=== PATIENT | male | born 1935 | race Caucasian/White ===

== ENCOUNTER 2017-05-14 05:55 | Emergency (ER) | payer MEDICARE, OTHER ==
[2017-05-14] MEDS ORDERED: SODIUM CHLORIDE 0.9% 1,000 ML IV STA ×2 (06:20→07:10)
[2017-05-14 06:45] LABS: EOSINOPHILS % (AUTO) 0.2 %; HCT - HEMATOCRIT 50.4 % (42.0-52.0); HGB - HEMOGLOBIN 16.8 g/dL (14.0-18.0); MEAN CORPUSCULAR HEMOGLOBIN 29.7 pg (27.0-31.0); MEAN CORPUSCULAR HGB CONC 33.3 g/dL (32.0-36.0); MEAN CORPUSCULAR VOLUME 89.1 fL (80.0-94.0); MEAN PLATELET VOLUME 7.7 fL (7.4-11.4); MONOCYTES % (AUTO) 4.9 %; NEUTROPHILS % (AUTO) 90.9 %; RED BLOOD COUNT 5.65 10^6/uL (4.70-6.10); RED CELL DISTRIBUTION WIDTH 14.1 % (12.0-15.0); UNCORRECTED WHITE BLOOD COUNT 11.9 x10^3/uL; WHITE BLOOD COUNT 11.9 x10^3/uL (4.8-10.8)
[2017-05-14 06:48] LABS: INR 1.1 (0.8-1.2)
[2017-05-14 06:52] LABS: ALBUMIN/GLOBULIN RATIO 1.7 (1.0-2.2); BILIRUBIN,TOTAL 1.2 mg/dL (0.2-1.0); CALCIUM 8.9 mg/dL (8.5-10.3); CREATININE 1.3 mg/dL (0.6-1.2)
[2017-05-14 07:01] LABS: PARTIAL THROMBOPLASTIN TIME 25.1 secs (24.9-33.3)
[2017-05-14 07:18] LABS: BAND NEUTROPHILS % (MANUAL) 22 %; BASOPHILS % (MANUAL) 1 %; NEUTROPHILS % (MANUAL) 67 %; TOTAL CELLS COUNTED 100
[2017-05-14 07:20] LABS: NP AUTO DIFFERENTIAL? YES; NP MAN DIFFERENTIAL? NO
--- NOTE | 2017-05-14 07:24 | ED Physician Documentation ---
PD HPI NVD - Stated complaint Stated Complaint: VOMITING,DIARRHEA - Chief complaint Chief Complaint: Abd Pain - History obtained from History obtained from: Patient, Family - History of Present Illness Timing - onset: Last night Timing - duration: Hours Timing - details: Abrupt onset, Still present Associated symptoms: Dizzy, Other (diarrhea and vomiting) Contributing factors: Travel Improved by: Vomiting Similar symptoms before: Has not had sx before Recently seen: Not recently seen - Additonal information Additional information: 81-year-old male with Intermittent atrial fibrillation who is on Tikosyn and has developed acute nausea and vomiting at approximately 1030 last night and developed diarrhea throughout the night. He has had a lot of diarrhea and he is feeling weak. He has not had an episode of atrial fibrillation in over a year. He has been on Tikosan for 2 years and has an implantable defibrillator. He is visiting here from [place] and he had a piece of chicken to eat from the grocery store yesterday that he thought was heavily breaded. He had dinner with the family and no one else is sick. He does not usually get vomiting and diarrhea.He was feeling well prior to the onset of nausea and vomiting last night. Review of Systems Constitutional: denies: Fever, Chills, Myalgias, Fatigue Eyes: denies: Decreased vision Ears: denies: Ear pain Nose: denies: Rhinorrhea / runny nose, Congestion Throat: denies: Sore throat Cardiac: denies: Chest pain / pressure, Palpitations Respiratory: reports: Dyspnea. denies: Cough GI: reports: Nausea, Vomiting, Diarrhea. denies: Abdominal Pain : denies: Dysuria, Frequency Skin: denies: Rash Musculoskeletal: denies: Neck pain, Back pain, Extremity pain Neurologic: reports: Generalized weakness. denies: Focal weakness, Numbness, Difficulty speaking, Altered mental status PD PAST MEDICAL HISTORY - Past Medical History Past Medical History: Yes Cardiovascular: Hypertension, High cholesterol, Atrial fibrillation Respiratory: None Neuro: None Endocrine/Autoimmune: Type 2 diabetes, HyPOthyroidism GI: None : None HEENT: None Psych: None Musculoskeletal: None Derm: None - Past Surgical History Past Surgical History: Yes General: Appendectomy Ortho: Knee replacement - Present Medications Home Medications: Ambulatory Orders Medication Instructions Recorded Confirmed Atorvastatin [Lipitor] 40 mg PO DAILY 05/14/17 05/14/17 Dofetilide [Tikosyn] 250 mcg PO DAILY 05/14/17 05/14/17 Levothyroxine Sodium [Synthroid] 200 mcg PO DAILY 05/14/17 05/14/17 Metoclopramide [Reglan] 10 mg PO Q6H PRN #10 tablet 05/14/17 Metoprolol Tartrate 25 mg PO DAILY 05/14/17 05/14/17 Multivitamin [Multivitamins] 1 each PO DAILY 05/14/17 05/14/17 [place]-3/Dha/Epa/Fish Oil [Fish Oil 1 each PO DAILY 05/14/17 05/14/17 1,000 mg Softgel] Ubidecarenone/Vitamin E Mixed 1 each PO DAILY 05/14/17 05/14/17 [Lap54-Xma E 100 mg-10 Unit Sfg] metFORMIN [Glucophage] 1,000 mg PO DAILY 05/14/17 05/14/17 - Allergies Allergies/Adverse Reactions: Allergies Allergy/AdvReac Type Severity Reaction Status Date / Time Penicillins Allergy Rash Verified 05/14/17 06:09 - Social History Does the pt smoke?: No Smoking Status: Never smoker Does the pt drink ETOH?: No Does the pt have substance abuse?: No - Immunizations Immunizations are current?: Yes PD ED PE NORMAL - Vitals Vital signs reviewed: Yes (Normal) - General General: Alert and oriented X 3, No acute distress, Well developed/nourished - HEENT HEENT: Atraumatic, PERRL, EOMI - Neck Neck: Supple, no meningeal sign, No bony TTP - Cardiac Cardiac: No murmur, Other (rapid irregluar rate and rhythm) - Respiratory Respiratory: No respiratory distress, Clear bilaterally - Abdomen Abdomen: Soft, Non tender - Back Back: No CVA TTP, No spinal TTP - Derm Derm: Normal color, Warm and dry, No rash - Extremities Extremities: No deformity, No edema - Neuro Neuro: Alert and oriented X 3, No motor deficit, No sensory deficit, Normal speech - Psych Psych: Normal mood, Normal affect Results - Vitals Vitals: Vital Signs - 24 hr 05/14/17 05/14/17 05/14/17 06:03 06:28 07:30 Temperature 36.6 C Heart Rate 89 126 H 116 H Respiratory 16 17 22 Rate Blood Pressure 127/77 102/65 103/62 O2 Saturation 95 94 95 05/14/17 05/14/17 05/14/17 08:00 08:05 08:10 Temperature Heart Rate 119 H 102 H 92 Respiratory 21 18 19 Rate Blood Pressure 101/59 L 102/72 100/60 O2 Saturation 96 97 95 05/14/17 05/14/17 05/14/17 08:34 08:45 09:09 Temperature Heart Rate 102 H 99 95 Respiratory 20 Rate Blood Pressure 99/57 L 98/54 L 97/62 O2 Saturation 97 05/14/17 09:15 Temperature Heart Rate 99 Respiratory 20 Rate Blood Pressure 106/67 O2 Saturation 98 Oxygen O2 Source Room air - EKG (time done) 0613 Rate: Rate (enter#) (132) Rhythm: Atrial fibrillation Ischemia: Other (lateral ST depression consistent with rate related strain) Compare to prior EKG: Old EKG unavailable Computer interpretation: Agree with computer - Labs Labs: Laboratory Tests 05/14/17 05/14/17 05/14/17 06:20 06:20 06:20 WBC 11.9 H RBC 5.65 Hgb 16.8 Hct 50.4 MCV 89.1 MCH 29.7 MCHC 33.3 RDW 14.1 Plt Count 119 L MPV 7.7 Neut # Not Reportable Lymph # Not Reportable [place] # Not Reportable Eos # Not Reportable Baso # Not Reportable Absolute Nucleated RBC Not Reportable Total Counted 100 Band Neuts % (Manual) 22 H Reactive Lymphs % (Man) 6 Metamyelocytes % 1 H Neutrophils # (Manual) 10.6 H Monocytes # (Manual) 0.4 Basophils # (Manual) 0.1 Nucleated RBCs Not Reportable Differential Comment MANUAL DIFFERENTIAL RBC Morph Micro Appear 1+ ANISOCYTOSIS PT 13.0 H INR 1.1 APTT 25.1 Sodium 137 Potassium 4.0 Chloride 106 Carbon Dioxide 19 L Anion Gap 12.0 BUN 27 H Creatinine 1.3 H Estimated GFR (MDRD) 53 L Glucose 217 H Calcium 8.9 Total Bilirubin 1.2 H AST 25 ALT 23 Alkaline Phosphatase 72 Troponin I Total Protein 7.0 Albumin 4.4 Globulin 2.6 Albumin/Globulin Ratio 1.7 Lipase 26 Urine Color Urine Clarity Urine pH Ur Specific [place] Urine Protein Urine Glucose (UA) Urine Ketones Urine Occult Blood Urine Nitrite Urine Bilirubin Urine Urobilinogen Ur Leukocyte Esterase Ur Microscopic Review Urine Culture Comments 05/14/17 05/14/17 06:20 07:30 WBC RBC Hgb Hct MCV MCH MCHC RDW Plt Count MPV Neut # Lymph # [place] # Eos # Baso # Absolute Nucleated RBC Total Counted Band Neuts % (Manual) Reactive Lymphs % (Man) Metamyelocytes % Neutrophils # (Manual) Monocytes # (Manual) Basophils # (Manual) Nucleated RBCs Differential Comment RBC Morph Micro Appear PT INR APTT Sodium Potassium Chloride Carbon Dioxide Anion Gap BUN Creatinine Estimated GFR (MDRD) Glucose Calcium Total Bilirubin AST ALT Alkaline Phosphatase Troponin I < 0.04 Total Protein Albumin Globulin Albumin/Globulin Ratio Lipase Urine Color DARK YELLOW Urine Clarity CLEAR Urine pH 6.0 Ur Specific [place] 1.020 Urine Protein NEGATIVE Urine Glucose (UA) NEGATIVE Urine Ketones 15 H Urine Occult Blood TRACE-INTA Urine Nitrite NEGATIVE Urine Bilirubin NEGATIVE Urine Urobilinogen 0.2 (NORMAL) Ur Leukocyte Esterase NEGATIVE Ur Microscopic Review NOT INDICATED Urine Culture Comments NOT INDICATED Procedures - IVC sono (time) 0745 Bedside IVC sono: IVC measures (cm) (1.00), IVC collapsed c insp (cm) (complete) , Dehydration (after one liter saline.) PD MEDICAL DECISION MAKING - ED course Complexity details: reviewed results, re-evaluated patient, considered differential, d/w patient ED course: 81-year-old male with a history of intermittent atrial fibrillation he is on Tikosyn and has developed nausea and vomiting and this morning and is in atrial fibrillation with a rapid ventricular rate. He is symptomatic with this. He does not appear to be in failure. I have discussed his case with his director of digital marketing Dr. Miguelangel Cuadra in [facility] and he recommends use of metoprolol for rate control and Reglan for nausea. Patient is administered Reglan with improvement in his nausea is able to take his tikosan and this morning and he is given intravenous metoprolol with reduction in his rate. He also takes his oral metoprolol. Departure - Departure Disposition: 01 Home, Self Care Clinical Impression: Atrial fibrillation Qualifiers: Atrial fibrillation type: paroxysmal Qualified Code(s): I48.0 - Paroxysmal atrial fibrillation Condition: Stable Instructions: ED Afib Follow-Up: Miguelangel Funes MD [Other] Prescriptions: Metoclopramide [Reglan] 10 mg PO Q6H PRN #10 tablet PRN Reason: Nausea / Vomiting
[2017-05-14] MEDS ORDERED: METOCLOPRAMIDE 10 MG/2 ML VIAL IVP STA (07:43)
[2017-05-14] MEDS ORDERED: METOPROLOL 5 MG/5 ML VIAL IVP STA (07:43)
[2017-05-14 07:46] LABS: BILIRUBIN,URINE NEGATIVE (NEGATIVE)
[2017-05-14 07:48] LABS: UA CHARGE (STRIP ONLY) YES; UR CULTURE IF IND NOT INDICATED
[2017-05-14] MEDS ORDERED: MAGNESIUM SULFATE 2 GRAM 50 ML IV ONE ×2 (07:50→07:54)
[2017-05-14] MEDS ORDERED: SODIUM CHLORIDE 0.9% 1,000 ML IV ONE (07:52)
[2017-05-14] MEDS ORDERED: METOCLOPRAMIDE 10 MG/2 ML VIAL ONE (07:54)
[2017-05-14] MEDS ORDERED: METOPROLOL 5 MG/5 ML VIAL IVP ONE (07:55)
[2017-05-14 10:12] VITALS: BP 113/58
== END 2017-05-14 10:35 | disposition home or self-care (01) ==
LOC: ED 05:55
DX: I48.0 Paroxysmal atrial fibrillation (principal); E86.0 Dehydration; R11.0 Nausea; I10 Essential (primary) hypertension; E11.9 Type 2 diabetes mellitus without complications; E03.9 Hypothyroidism, unspecified; Z96.659 Presence of unspecified artificial knee joint; Z79.01 Long term (current) use of anticoagulants
CPT/HCPCS: 36415; 80053; 81001; 81003; 83690; 84484; 85025; 85610; 85730; 87086; 93005; 96361; 96374; 96375; 99285